=== PATIENT | female | born 1950 | race Hispanic/Latino ===

== ENCOUNTER 2017-03-26 08:56 | Outpatient (CLI) | payer BC, MEDICARE ==
--- NOTE | 2017-03-26 13:51 | RAD ---
TWO VIEW CHEST: History: Pre-operative evaluation. FINDINGS: Lungs are clear. No infiltrates seen. Heart and mediastinum unremarkable. Osseous structures are unre markable. IMPRESSION: No acute finding. POS: [facility]
[2017-03-26 14:48] LABS: Bilirubin Negative (Negative); Blood, Urine Negative (Negative); Glucose, Urine (Dipstick) Negative (Negative); Ketone, Urine Negative (Negative); Nitrite Negative (Negative); Protein, Urine (Dipstick) Negative (Neg-Trace); Urobilinogen 0.2 mg/dL (0.2-1.0)
[2017-03-26 14:53] LABS: #Eosinphils 0.3 thou/uL (0.0-0.7); #Lymphocytes 1.7 thou/uL (1.20-3.40); #Monocytes 0.3 thou/uL (0.11-0.59); #Neutrophils 4.8 thou/uL (1.40-6.50); %Basophils 0.2 % (0.0-1.0); %Eosinophils 4.7 % (0.0-10.0); %Lymphocytes 24.1 % (21.0-51.0); %Monocytes 4.1 % (0.0-10.0); Hematocrit 41.7 % (36.0-47.0); Mean Platelet Volume 7.6 fL (7.4-10.4); Red Blood Cell (RBC) Count 4.48 mill/uL (4.20-5.40); White Blood Cell (WBC) Count 7.1 thou/uL (4.8-10.8)
[2017-03-26 14:54] LABS: Bacteria/HPF None Seen HPF (None Seen); Hyaline Casts/LPF 0-3 HYALINE CAST LPF (0-3 Hyaline); Squamous Epithelial None Seen HPF (0-3); WBC/HPF 0-3 HPF (0-3)
[2017-03-26 14:59] LABS: PTT 31.6 SEC (22.9-36.1); Prothrombin Time 12.8 SEC (12.0-14.7)
[2017-03-26 15:11] LABS: Anion Gap 11 mmol/L (10-20); BUN (Urea Nitrogen) 12 mg/dL (9.8-20.1); Calc. Creatinine Clearance 0 mL/min (70-130); Calcium 9.1 mg/dL (7.8-10.44); Carbon Dioxide 28 mmol/L (23-31); Chloride 105 mmol/L (98-107); Estimated GFR-MDRD 72
== END 2017-03-26 08:57 | disposition home or self-care (01) ==
LOC: LABBT 08:56
PROVIDERS: ATTEND Orthopaedic Surgery
DX: Z01.818 Encounter for other preprocedural examination (principal); M17.11 Unilateral primary osteoarthritis, right knee
CPT/HCPCS: 71020; 80048; 81001; 85025; 85610; 85730; 86850; 86900; 86901; 87081; 93005; 93010

== ENCOUNTER 2017-03-26 09:00 | Inpatient (IN) | payer BC, MEDICARE ==
[2017-03-26 09:27] VITALS: BMI 27.8
[2017-04-02] MEDS ORDERED: Tranexamic Acid 1,000 MG/100 ML BAG ONE ×2 (06:20→08:43)
[2017-04-02] MEDS ORDERED: CEFAZOLIN/Water 2 GM/20 ML SYRINGE ONE (06:20)
[2017-04-02] MEDS ORDERED: Midazolam HCl 2 mg/2 ml Vial ONE (06:24)
[2017-04-02] MEDS ORDERED: Fentanyl 100 MCG/2 ML VIAL ONE (06:24)
[2017-04-02] MEDS ORDERED: Ropivacaine 0.2% HCl/PF 20 ML ONE (06:24)
[2017-04-02] MEDS ORDERED: Lidocaine 1% (PF) 30 ML VIAL ONE (06:30)
[2017-04-02] MEDS ORDERED: Acetaminophen 325 MG TAB PO PRN (06:48)
[2017-04-02] MEDS ORDERED: Zolpidem Tartrate 5 MG TAB PO PRN ×2 (06:48→07:10)
[2017-04-02] MEDS ORDERED: Fentanyl 100 MCG/2 ML VIAL SLOW IVP PRN ×2 (06:48)
[2017-04-02] MEDS ORDERED: traMADol HCl 50 MG TAB PO PRN ×3 (06:48→07:10)
[2017-04-02] MEDS ORDERED: HYDROcodone/Acetaminophen 10/325 mg Tablet PO PRN ×3 (06:48→07:10)
[2017-04-02] MEDS ORDERED: diphenhydrAMINE 25 MG CAP PO PRN (06:48)
[2017-04-02] MEDS ORDERED: Promethazine HCl 25 MG/ML VIAL IM PRN ×3 (06:48→08:12)
[2017-04-02] MEDS ORDERED: Ondansetron HCl/PF 4 MG/2 ML Vial IVP PRN ×3 (06:48→08:12)
[2017-04-02] MEDS ORDERED: Tranexamic Acid 1,000 MG in Sodium Chloride 0.9% 100 ML IVPB SCH (07:00)
[2017-04-02] MEDS ORDERED: Ropivacaine HCl/PF 250 ML in Premix Bag 1 BAG NERVE BLCK SCH (07:10)
[2017-04-02] MEDS ORDERED: Ketorolac Tromethamine 30 MG/ML VIAL IVP PRN (07:10)
[2017-04-02] MEDS ORDERED: Fentanyl 100 MCG/2 ML VIAL IV PRN (07:11)
[2017-04-02] MEDS ORDERED: Promethazine HCl 25 MG/ML VIAL SLOW IVP PRN (08:12)
--- NOTE | 2017-04-02 09:06 | RAD ---
RIGHT KNEE TWO VIEWS: HISTORY: Post-op total knee arthroplasty. FINDINGS/IMPRESSION: The recent post-op changes of total knee arthroplasty demonstrate good position and alignment. Soft tissue air is noted. POS: [facility]
[2017-04-02] MEDS ORDERED: Losartan Potassium 25 MG TAB PO SCH (09:30)
--- NOTE | 2017-04-02 10:03 | OP ---
PREOPERATIVE DIAGNOSIS: Degenerative joint disease, right knee. POSTOPERATIVE DIAGNOSIS: Degenerative joint disease, right knee. TITLE OF PROCEDURE: Right total knee arthroplasty using a Vj Triathlon 3 femur, 3 tibia, 9 mm C SX3 polyethylene, 8 x [address] CLERK: Apolinar Jacobsen PA-C. TOURNIQUET TIME: 52 minutes. PROCEDURE IN DETAIL: After informed consent was obtained in the preoperative holding area. The nori ent was taken to the operative suite where general anesthesia was induced. Once adequate level of ge neral anesthesia was obtained, the patient was positioned and a well-padded tourniquet was placed yenifer und the right proximal thigh. The right lower extremity was then prepped and draped in the usual liliana rile fashion. Prior to exsanguination, a time out was called and all members of the surgical team ag phillip upon site, surgeon, and patient. The extremity was then exsanguinated and the tourniquet was ra ised. A midline longitudinal incision was then made directly over the patella extending two fingerbr eadths above the superior pole of the patella and two fingerbreadths inferior to the inferior patella r pole of the patella. Deeper subcutaneous layers were dissected sharply and local bleeding was cont rolled with Bovie electrocautery. A quad tendon longitudinal split was then made sharply and a media n parapatellar arthrotomy was carried out both sharp and with Bovie electrocautery, carried down to o ne fingerbreadth medial to the tibial tubercle. The knee was then placed into flexion and the patell a was everted nicely, and a copious fat pad ectomy was performed allowing for greater exposure of the tibia. The computer-assisted distal femoral fiducial was then placed and pinned firmly, and the dis mayur femoral cutting guide was pinned firmly into place. The oscillating saw was then used to remove the appropriate amount of bone. The 4-in-1 cutting block was then placed on the distal femur and the oscillating saw was used to remove the appropriate amount of bone off of the anterior, posterior, an d chamfer cuts. After completion of bone cuts, the anterior cruciate ligament was resected sharply a nd the posterior cruciate ligament retractor was placed and the tibia was subluxed for better exposur e. Partial meniscectomies were carried out, and the tibial computer-assisted fiducial was pinned, an d the cutting guide was placed. Oscillating saw was then used to remove the bone with Hohmann retrac tors used to take care and protect the collateral ligaments. After the tibial resection was performe d, a laminar senior investigator was placed in between the freshened bone cuts. The knee placed at 90 degrees a nd further bilateral meniscectomies were carried out, and the curved osteotome and curettage was used to remove any excess bone spurs in the posterior compartment. Exparel was then injected into the po sterior capsule, hamzah-articular synovia, pre-patella synovia, and musculature surrounding the capsule . The trial femoral component, tibial baseplate were placed with the appropriate polyethylene trial insert with an appropriate polyethylene spacer and patellar button. The knee was taken through full range of motion with flexion and extension from 0-90 degrees and patellar broach squarely in the troc hlea without any squinting or subluxation noted. The knee was also stable to varus and valgus stress ing at 0, 15, 45, and 90 degrees of flexion. The drawer was negative. All trial components were then removed and the keel punch was used to provide the appropriate defect in the tibia with a mallet. T he freshened bone cuts were copiously irrigated with pulsatile lavage of about 1-1/2 liters to remove all excess debris. The freshened bone cuts were then dried and with suction and lap sponge. The kn ee was placed in flexion and retractors were placed to provide access to all bone cuts. Tobramycin i mpregnated methyl methacrylate cement was then placed on the freshened bone cuts and implants which w ere malleted firmly into place. Curettage and [place] elevators were used to remove any excess bone ce ment. The knee was placed into full extension and the patellar button was placed under compression, and the cement was allowed to cure. Once completed, the components were again taken through full ran ge of motion and copious irrigation of the knee was carried out with another liter of normal saline. All components were inspected fully with full range of motion and varus and valgus stressing. There was no laxity noted and full extension was observed clinically. Primary closure was accomplished wit h #2 interrupted Vicryl stitch of the arthrotomy defect. This was oversewn with a #2 running Quill b arbed stitch. The gravitational platelet system was then injected into the arthrotomy prior to closu re. The subcutaneous layer was then closed with a running 0 barbed Monocryl stitch and skin closure accomplished with a running subcuticular 3-0 Monocryl barbed Quill stitch and augmented with cement o n the skin. Tourniquet was lowered. Good spontaneous return of distal pulses was noted clinically a nd a sterile dressing was applied to the incision. The procedure was terminated without any complica tions. The patient was awakened in the operative suite and the tourniquet was removed, and the patie nt was taken to the recovery room in stable condition.
[2017-04-02] MEDS ORDERED: Ropivacaine 0.5% HCl/PF (150 MG/30 ML VIAL) ONE (11:02)
[2017-04-02] MEDS ORDERED: Propofol 200 MG/20 ML VIAL ONE (11:33)
[2017-04-02] MEDS ORDERED: Ketorolac Tromethamine 30 MG/ML VIAL ONE (11:33)
[2017-04-02] MEDS ORDERED: Ondansetron HCl/PF 4 MG/2 ML Vial ONE (11:33)
[2017-04-02] MEDS ORDERED: Lidocaine 1% PF 5 ML VIAL ONE (11:33)
[2017-04-02] MEDS ORDERED: Ketorolac Tromethamine 30 MG/ML VIAL IVP SCH (14:00)
[2017-04-02] MEDS: CEFAZOLIN/Water 2 GM/20 ML SYRINGE SLOW IVP SCH ×2 (14:30→21:10)
[2017-04-02] MEDS: Senokot S 8.6-50 MG TAB PO SCH ×2 (14:31→21:27)
[2017-04-02] MEDS: Aspirin 325 MG TAB PO SCH ×2 (14:31→21:09)
[2017-04-02] MEDS: Dextrose 5 %-0.45 % NaCl 1,000 ML IV SCH ×2 (14:32→18:04)
--- NOTE | 2017-04-02 15:28 | CON-2 ---
DATE OF ADMISSION: 04/02/2017 DATE OF CONSULTATION: 04/02/2017 CODE STATUS IS FULL. PRIMARY CARE PHYSICIAN: Giovanni Herrera M.D. ORTHOPEDIC SURGEON: Mani Coles M.D. ATTENDING PHYSICIAN: Francisco Love M.D. RESIDENT: Martha Guy M.D. HISTORIAN: The patient. CHIEF COMPLAINT: Right knee replacement. HISTORY OF PRESENT ILLNESS: This is a 67-year-old female with a history of rheumatoid arthritis, Sjo gren's disease, fibromyalgia, hypertension and hypothyroidism who presented to the hospital this [facility] for an elective right knee replacement. The Family Medicine team has been consulted on the case for medical management. She has no complaints this afternoon and states her pain is well controlled. PAST MEDICAL HISTORY: 1. Rheumatoid arthritis. 2. Sjogren's disease. 3. Fibromyalgia. 4. Hypertension. 5. Hypothyroidism. PAST SURGICAL HISTORY: 1. Right knee replacement. 2. Left knee arthroscopy. 3. Unilateral oophorectomy. ALLERGIES: No known drug allergies. MEDICATIONS: 1. Levothyroxine 50 mcg 1 tab p.o. daily. 2. Losartan 50 mg p.o. daily. 3. Glucosamine/chondroitin 1 tab p.o. daily. 4. Vitamin E 400 International Units 1 tab p.o. daily. 5. Turmeric 400 mg p.o. daily. 6. Orange-3 fatty acid 1000 mg p.o. daily. 7. Lecithin 10 mg p.o. daily. 8. Vitamin D3 800 units p.o. daily. 9. Calcium 250 mg p.o. daily. 10. Collagen 1 capsule p.o. daily. FAMILY HISTORY: None. SOCIAL HISTORY: Patient denies tobacco, alcohol, or drug use. The patient is a high school agriculture teacher. Joaquin pardo is and has two children. REVIEW OF SYSTEMS: GENERAL: No fever, chills, weight or appetite change. EYES: No vision changes or eye pain. ENT: No nasal congestion, rhinorrhea, or sore throat. The patient does report a history of right ea r pain this past couple days ago and has a little bit of fullness in her ear with decreased hearing. RESPIRATORY: No cough, congestion, shortness of breath. CARDIOVASCULAR: No chest pain, palpitations, edema. There is bilateral leg swelling. GASTROINTESTINAL: No nausea, vomiting, diarrhea, constipation or abdominal pain. GENITOURINARY: No incontinence, dysuria, or polyuria. SKIN: No rashes or lesions. MUSCULOSKELETAL: Bilateral knee pain. NEUROLOGIC: No weakness or numbness. PSYCHIATRIC: No anxiety or depression. PHYSICAL EXAMINATION: VITAL SIGNS: Blood pressure 155/88, pulse 75, respirations 18, T-max 97.5, pulse ox 100% on room air . Current weight is 68.9 kilograms. GENERAL: The patient is alert and oriented, in no acute distress. Well-developed, well-nourished. EYES: PERRL. EOMI. NECK: Supple. CARDIOVASCULAR: Regular rate and rhythm without any murmurs or gallops noted. LUNGS: Clear to auscultation bilaterally without wheezes, rales or rhonchi. SKIN: Warm and dry. ABDOMEN: Soft and nontender to palpation. Bowel sounds are present. EXTREMITIES: No clubbing, cyanosis or edema noted. The patient does have bilateral dorsalis pedis p ulses. MUSCULOSKELETAL: The patient does have a wrap around her right knee. Has a nerve block in place and consequently has no sensation or movement of the right lower extremity secondary to the nerve block, but she does have normal strength and sensation in the left lower extremity. NEUROLOGIC: Cranial nerves II-XII appear to be intact. IMAGING: Right knee x-ray shows good position and alignment of the recent right knee arthroplasty. ASSESSMENT AND PLAN: A 67-year-old female postop day #0, status post total knee replacement. 1. Degenerative joint disease secondary to rheumatoid arthritis, status post right knee replacement - this will be managed per the primary team. Pain management per Anesthesia and Orthopedics. 2. Hypertension. Continue patient's home losartan. We will treat with additional medications if ne ed be, but appears to be controlled at this time. 3. Hypothyroidism. Continue levothyroxine. 4. Rheumatoid arthritis, not currently on medications. We will hold patient's supplements at this t karen during her hospitalization. DISPOSITION AND LENGTH OF HOSPITAL STAY: Likely 2 nights. Symptomatic medications will be provided. History and physical exam as well as management have been discussed with Dr. Francisco Love and is in agreement.
--- NOTE | 2017-04-02 16:01 | PDOC.EVN ---
Attending Addendum - Attending Addendum I personally evaluated the patient and discussed the management with Dr. Guy. I agree with the History, Examination, Assessment and Plan documented in her consultation note with any addition or exceptions noted below. Patient with history of RA, HTN and hypothyroidism admitted s/p total knee replacement. Our team has been consulted for medical mgmt. Patient overall doing well. For HTN, will resume home meds and titrate as necessary. Hypothyroidism appears stable and no indication at this time to make changes to home regimen. Pain control and therapy per primary team. Will continue to follow and make adjustments as necessary. Would recommend heart healthy diet while in hospital.
[2017-04-03] MEDS: HYDROcodone/Acetaminophen 10/325 mg Tablet PO PRN ×2 (01:07→05:34)
[2017-04-03] MEDS: Dextrose 5 %-0.45 % NaCl 1,000 ML IV SCH ×3 (02:48→23:00)
[2017-04-03] MEDS: Levothyroxine Sodium 50 MCG TAB PO SCH (05:34)
[2017-04-03 06:16] LABS: Hematocrit 38.4 % (36.0-47.0); Mean Platelet Volume 7.7 fL (7.4-10.4); Red Blood Cell (RBC) Count 4.15 mill/uL (4.20-5.40); White Blood Cell (WBC) Count 7.8 thou/uL (4.8-10.8)
[2017-04-03] MEDS ORDERED: Acetaminophen/Codeine 30-300mg Tablet PO PRN (07:15)
[2017-04-03] MEDS: Aspirin 325 MG TAB PO SCH ×2 (08:35→20:31)
[2017-04-03] MEDS: Losartan Potassium 25 MG TAB PO SCH (08:35)
[2017-04-03] MEDS: Ferrous Gluconate 324 MG TAB PO SCH ×2 (08:35→20:31)
[2017-04-03] MEDS: Multivitamin W/ Minerals 1 TAB PO SCH (08:35)
[2017-04-03] MEDS: Senokot S 8.6-50 MG TAB PO SCH ×2 (08:36→20:31)
--- NOTE | 2017-04-03 09:28 | PDOC.FM ---
- Subjective Subjective: Patient doing okay this morning however her nerve block is wearing off and she reports some increase in rt knee pain. She took pain medication last night and felt lightheaded and nauseated after which is her biggest complaint. Tolerating PO well. - Objective MAR Reviewed: Yes Vital Signs & Weight: Vital Signs (12 hours) Temp Pulse Resp BP Pulse Ox 04/03/17 07:17 98.9 F 68 16 164/80 H 97 04/03/17 04:00 98.4 F 74 18 161/74 H 99 04/03/17 00:00 98.8 F 82 18 116/66 97 Weight Weight 68.946 kg I&O: 04/02/17 04/03/17 04/04/17 06:59 06:59 06:59 Intake Total 3740 Output Total 3375 Balance 365 Result Diagrams: 04/03/17 05:45 <Martha Guy - Last Filed: 04/03/17 09:26> - Objective Vital Signs & Weight: Vital Signs (12 hours) Temp Pulse Resp BP Pulse Ox 04/03/17 08:00 98.9 F 68 16 97 04/03/17 07:17 98.9 F 68 16 164/80 H 97 04/03/17 04:00 98.4 F 74 18 161/74 H 99 04/03/17 00:00 98.8 F 82 18 116/66 97 Weight Weight 68.946 kg I&O: 04/02/17 04/03/17 04/04/17 06:59 06:59 06:59 Intake Total 3740 Output Total 3375 Balance 365 Result Diagrams: 04/03/17 05:45 <Haseeb Mcgee - Last Filed: 04/03/17 11:35> Phys Exam - Physical Examination Constitutional: NAD Respiratory: no wheezing, no rales, no rhonchi, clear to auscultation bilateral Cardiovascular: RRR, no significant murmur Gastrointestinal: soft, non-tender Musculoskeletal: no edema rt leg brace in place sensation and movement of RLE returned. <Martha Guy - Last Filed: 04/03/17 09:26> Dx/Plan (1) Status post right knee replacement Code(s): Z96.651 - PRESENCE OF RIGHT ARTIFICIAL KNEE JOINT Status: Acute Plan: mgmt per primary team. Pain mgmt per anesthesia (2) HTN (hypertension) Code(s): I10 - ESSENTIAL (PRIMARY) HYPERTENSION Status: Acute Plan: Some acute elevation this morning. Suspect this may be 2/2 pain as she was well controlled yesterday. However will add on PRN hydralazine. (3) Rheumatoid arteritis Code(s): I00 - RHEUMATIC FEVER WITHOUT HEART INVOLVEMENT Status: Acute (4) Hypothyroidism Code(s): E03.9 - HYPOTHYROIDISM, UNSPECIFIED Status: Acute Plan: cont home levothyroxine. <Martha Guy - Last Filed: 04/03/17 09:26> Attending Addendum - Attending Addendum I personally evaluated the patient and discussed the management with Dr. Espinoza. I agree with the History, Examination, Assessment and Plan documented above with any addition or exceptions noted below. <Haseeb Mcgee - Last Filed: 04/03/17 11:35>
[2017-04-03] MEDS: hydrALAZINE 20 MG/ML VIAL SLOW IVP PRN ×2 (11:43→20:33)
[2017-04-03] MEDS: Acetaminophen/Codeine 30-300mg Tablet PO PRN (20:32)
[2017-04-04 06:05] LABS: Mean Platelet Volume 7.5 fL (7.4-10.4); Red Blood Cell (RBC) Count 4.12 mill/uL (4.20-5.40)
[2017-04-04] MEDS: Levothyroxine Sodium 50 MCG TAB PO SCH (06:50)
[2017-04-04] MEDS: Acetaminophen/Codeine 30-300mg Tablet PO PRN ×2 (06:50→12:52)
[2017-04-04] MEDS: Multivitamin W/ Minerals 1 TAB PO SCH (08:08)
[2017-04-04] MEDS: Senokot S 8.6-50 MG TAB PO SCH (08:08)
[2017-04-04] MEDS: Ferrous Gluconate 324 MG TAB PO SCH (08:08)
[2017-04-04] MEDS: Losartan Potassium 25 MG TAB PO SCH (08:09)
[2017-04-04] MEDS: Aspirin 325 MG TAB PO SCH (08:09)
--- NOTE | 2017-04-04 09:03 | PDOC.FM ---
- Subjective Subjective: Patient doing well this morning. She reports better control of pain and blood pressure has improved this morning. She is tolerating PO well. - Objective MAR Reviewed: Yes Vital Signs & Weight: Vital Signs (12 hours) Temp Pulse Resp BP BP Pulse Ox 04/04/17 07:58 98.5 F 86 16 148/71 H 96 04/04/17 04:53 98.3 F 86 18 144/65 H 96 04/04/17 00:26 98.3 F 92 20 150/65 H 96 Weight Admit Weight 68.946 kg Weight 68.946 kg I&O: 04/03/17 04/04/17 04/05/17 06:59 06:59 06:59 Intake Total 3740 1920 Output Total 3375 3125 Balance 365 1201 Result Diagrams: 04/04/17 05:50 <Martha Guy - Last Filed: 04/04/17 09:01> - Objective Vital Signs & Weight: Vital Signs (12 hours) Temp Pulse Resp BP BP Pulse Ox 04/04/17 11:47 98.1 F 77 14 144/70 H 98 04/04/17 08:00 98.5 F 86 16 96 04/04/17 07:58 98.5 F 86 16 148/71 H 96 04/04/17 04:53 98.3 F 86 18 144/65 H 96 Weight Admit Weight 68.946 kg Weight 68.946 kg I&O: 04/03/17 04/04/17 04/05/17 06:59 06:59 06:59 Intake Total 3740 1920 Output Total 3375 3125 Balance 365 1209 Result Diagrams: 04/04/17 05:50 <Ariella Costa - Last Filed: 04/04/17 15:22> Phys Exam - Physical Examination Constitutional: NAD Respiratory: no wheezing, no rales, no rhonchi, clear to auscultation bilateral Cardiovascular: RRR, no significant murmur Gastrointestinal: soft, non-tender <Martha Guy - Last Filed: 04/04/17 09:01> Dx/Plan (1) Status post right knee replacement Code(s): Z96.651 - PRESENCE OF RIGHT ARTIFICIAL KNEE JOINT Status: Acute Plan: mgmt per primary team. (2) HTN (hypertension) Code(s): I10 - ESSENTIAL (PRIMARY) HYPERTENSION Status: Acute Plan: Would recommend patient follow up with her PCP for further blood pressure monitoring as she has had several elevated pressures. PRN hydralazine. (3) Rheumatoid arteritis Code(s): I00 - RHEUMATIC FEVER WITHOUT HEART INVOLVEMENT Status: Acute (4) Hypothyroidism Code(s): E03.9 - HYPOTHYROIDISM, UNSPECIFIED Status: Acute Plan: cont home levothyroxine. <Martha Guy - Last Filed: 04/04/17 09:01> Attending Addendum - Attending Addendum I personally evaluated the patient and discussed the management with Dr. Guy at 945 am. I agree with the History, Examination, Assessment and Plan documented above with any addition or exceptions noted below. pod#2 s/p Rt knee replacement- HTN-stable. May need outpatient adjustment <Ariella Costa - Last Filed: 04/04/17 15:22>
[2017-04-04] MEDS: Dextrose 5 %-0.45 % NaCl 1,000 ML IV SCH (09:59)
[2017-04-04 11:48] VITALS: BP 144/70; TEMP 98.1
--- NOTE | 2017-04-05 14:18 | DIS ---
DATE OF ADMISSION: 04/02/2017 DATE OF DISCHARGE: 04/04/2017 PREOPERATIVE DIAGNOSIS: Right knee osteoarthrosis/degenerative joint disease. DISCHARGE DIAGNOSIS: Right knee osteoarthrosis/degenerative joint disease. PROCEDURE: The patient underwent a right total knee replacement. HOSPITAL COURSE: Hospital stay was unremarkable. She was admitted to [address] she worked with staff, physical therapy, occupational therapy, and progressed quite well. By postop day 2, she was ready to discharge home. DISCHARGE CONDITION: Good/stable. DISPOSITION: Home with family. FOLLOWUP: Followup would be in 3-4 weeks, sooner if there are problems or concerns. DISCHARGE MEDICATIONS: Given with usage instructions.
== END 2017-04-04 15:07 | disposition home health service (06) | DRG 470 ==
LOC: SURG A 04-02 06:09
PROVIDERS: ADMIT Orthopaedic Surgery; ATTEND Orthopaedic Surgery
PROC: 0SRC0J9 Replacement of Right Knee Joint with Synthetic Substitute, Cemented, Open Approach (ICD-10-PCS; principal; 2017-04-02)
PROC: 3E0T3BZ Introduction of Anesthetic Agent into Peripheral Nerves and Plexi, Percutaneous Approach (ICD-10-PCS; 2017-04-02)
DX: M05.761 Rheumatoid arthritis with rheumatoid factor of right knee without organ or systems involvement (principal); I10 Essential (primary) hypertension; M17.11 Unilateral primary osteoarthritis, right knee; Z90.721 Acquired absence of ovaries, unilateral; E03.9 Hypothyroidism, unspecified; I00 Rheumatic fever without heart involvement
CPT/HCPCS: 36415; 85027; C1713; C1776; G8978-GP-CM; G8979-GP-CJ; J0360; J1885; J2001; J2250; J2405; J2704; J2795; J3010; J3370

== ENCOUNTER 2018-10-09 13:59 | Outpatient (CLI) | payer MEDICARE ==
--- NOTE | 2018-10-09 14:48 | MMO ---
Bilateral MAMMO Bilat Screen [facility]. CLINICAL HISTORY: Patient is 68 years old and is seen for screening. VIEWS: The views performed were: . FILMS COMPARED: The present examination has been compared to prior imaging studies performed at [facility] on 03/22/2014, 03/25/2015 and 09/12/2016, and at [facility] on 03/28/2005. MAMMOGRAM FINDINGS: There are scattered fibroglandular densities. Benign calcifications are noted bilaterally. There are no suspicious masses, suspicious calcifications, or new areas of architectural distortion. IMPRESSION: THERE IS NO MAMMOGRAPHIC EVIDENCE OF MALIGNANCY. A ROUTINE FOLLOW-UP MAMMOGRAM IN 1 YEAR IS RECOMMENDED. THE RESULTS OF THIS EXAM WERE SENT TO THE PATIENT. ACR BI-RADS Category 2 - Benign finding MAMMOGRAPHY NOTE: 1. A negative mammogram report should not delay a biopsy if a dominant of clinically suspicious mass is present. 2. Approximately 10% to 15% of breast cancers are not detected by mammography. 3. Adenosis and dense breasts may obscure an underlying neoplasm.
== END 2018-10-09 14:00 | disposition home or self-care (01) ==
LOC: BICMAMMO 13:59
PROVIDERS: ATTEND Family Medicine
DX: Z12.31 Encounter for screening mammogram for malignant neoplasm of breast (principal)
CPT/HCPCS: 77063; 77067

== ENCOUNTER 2019-11-03 09:43 | Outpatient (CLI) | payer MEDICARE ==
--- NOTE | 2019-11-03 10:07 | MMO ---
Bilateral MAMMO Bilat Screen [facility]. CLINICAL HISTORY: Patient is 69 years old and is seen for screening. The patient has no family history of breast cancer. The patient has no personal history of cancer. VIEWS: The views performed were: bilateral craniocaudal with tomosynthesis and bilateral mediolateral oblique with tomosynthesis. FILMS COMPARED: The present examination has been compared to prior imaging studies performed at [facility] on 03/22/2014, 03/25/2015, 09/12/2016 and 10/09/2018. This study has been interpreted with the assistance of computer-aided detection. MAMMOGRAM FINDINGS: There are scattered fibroglandular densities. There are stable benign appearing calcifications seen in both breasts. There are no suspicious masses, suspicious calcifications, or new areas of architectural distortion. IMPRESSION: THERE IS NO MAMMOGRAPHIC EVIDENCE OF MALIGNANCY. A ROUTINE FOLLOW-UP MAMMOGRAM IN 1 YEAR IS RECOMMENDED. THE RESULTS OF THIS EXAM WERE SENT TO THE PATIENT. ACR BI-RADS Category 2 - Benign finding MAMMOGRAPHY NOTE: 1. A negative mammogram report should not delay a biopsy if a dominant of clinically suspicious mass is present. 2. Approximately 10% to 15% of breast cancers are not detected by mammography. 3. Adenosis and dense breasts may obscure an underlying neoplasm. Reported by: JONN VILLAGRAN MD Electonically Signed: [id number]
== END 2019-11-03 09:44 | disposition home or self-care (01) ==
LOC: BICMAMMO 09:43
PROVIDERS: ATTEND Family Medicine
DX: Z12.31 Encounter for screening mammogram for malignant neoplasm of breast (principal)
CPT/HCPCS: 77063; 77067